=== PATIENT | male | born 1945 | race Caucasian/White ===

== ENCOUNTER 2021-04-07 15:08 | Inpatient (IN) | payer MEDICARE, OTHER ==
[~2021-04-07] VITALS: Ht 167.6 cm; Wt 78.7 kg
--- NOTE | 2021-04-07 15:30 | NUR ---
Patient came in to the er c/o abd pain and nausea after eating. On room air, breathing evenly and unlabored. Connected to the monitor and pulse ox. Kept comfortable, will continue to monitor accordingly.
--- NOTE | 2021-04-07 16:05 | NUR ---
IV started on the LAC G18.
[2021-04-07 16:16] LABS: BASOPHILS % (AUTO) 1.1 % (0.0-2.0); EOSINOPHILS % (AUTO) 6.4 % (0.0-6.0); HEMATOCRIT 31 % (39-51); HEMOGLOBIN 10.3 g/dL (13.5-17.5); LYMPHOCYTES # (AUTO) 0.6 K/uL (0.8-4.8); LYMPHOCYTES % (AUTO) 20.7 % (20.0-44.0); MEAN CORPUSCULAR HGB CONC 33 g/dl (31.0-36.0); MEAN CORPUSCULAR VOLUME 92 fL (80-96); MONOCYTES # (AUTO) 0.4 K/uL (0.1-1.30); MONOCYTES % (AUTO) 14.4 % (2.0-12.0); NEUTROPHILS # (AUTO) 1.7 K/uL (1.8-8.9); NEUTROPHILS % (AUTO) 57.4 % (43.0-81.0); PLATELET COUNT (AUTO) 123 K/uL (150-450); RED BLOOD CELL COUNT(AUTO) 3.42 MIL/uL (4.5-6.0); WHITE BLOOD COUNT (AUTO) 2.9 K/uL (4.3-11.0)
[2021-04-07 17:08] LABS: BILIRUBIN,URINE MODERATE (NEGATIVE); COLOR,URINE DARK YELLOW (YELLOW); LEUKOCYTE ESTERASE ,URINE NEGATIVE (NEGATIVE); NITRITE, URINE NEGATIVE (NEGATIVE); PROTEIN,URINE TRACE mg/dl (NEGATIVE); UGLUCOSE 250 MG/DL mg/dL (NEGATIVE)
[2021-04-07 17:14] LABS: CALCIUM, SERUM 9.2 mg/dL (8.5-10.1); CARBON DIOXIDE 20 mmol/L (21-32); CHLORIDE 101 mmol/L (98-107); CREATININE 2.1 mg/dL (0.6-1.3); GLUCOSE 253 mg/dL (74-106); POTASSIUM 5.5 mmol/L (3.5-5.1); SODIUM SERUM 134 mmol/L (136-145); UREA NITROGEN, BLOOD 30 mg/dL (7-18)
[2021-04-07 17:23] LABS: ALANINE AMINOTRANSFERASE 93 U/L (12-78); ALBUMIN 2.8 g/dL (3.4-5.0); ALKALINE PHOSPHATASE 309 U/L (46-116); ASPARTATE AMINOTRANSFERASE 116 U/L (15-37); BILIRUBIN,DIRECT 4.6 mg/dL (0.0-0.2); BILIRUBIN,TOTAL 5.1 mg/dL (0.2-1.0)
[2021-04-07 17:29] LABS: BACTERIA,URINE Few /HPF (None Seen); SQUAMOUS EPITHELIAL CELL,UR Few /HPF (None Seen); URINE AMORPHOUS URATE Few /HPF (None Seen)
[2021-04-07 17:37] LABS: LIPASE 1837 U/L (73-393)
[2021-04-07] MEDS ORDERED: ONDANSETRON HCL/PF 4 MG/2 ML VIAL ONE (17:49)
--- NOTE | 2021-04-07 17:58 | NUR ---
PAGED [facility].
[2021-04-07] MEDS ORDERED: ONDANSETRON HCL/PF - ER 4 MG/2 ML VIAL IV ONE (18:00)
[2021-04-07] MEDS ORDERED: IV NS 0.9% 500 ML BAG IV ONE ×2 (18:00→18:30)
[2021-04-07] MEDS ORDERED: DEXTROSE 50%-WATER 50 ML DISP.SYRIN IV PRN (20:30)
[2021-04-07] MEDS ORDERED: Z GUARD REMEDY 2 OZ OINT TP PRN (20:30)
[2021-04-07] MEDS ORDERED: ONDANSETRON HCL/PF 4 MG/2 ML VIAL IVP PRN (20:30)
[2021-04-07] MEDS ORDERED: ACETAMINOPHEN 325 MG TABLET PO PRN (20:30)
--- NOTE | 2021-04-07 20:55 | NUR ---
REPORT GIVEN TO ROB SINGLETON FOR TANGELA
[2021-04-07 21:15] VITALS: BP 161/78
--- NOTE | 2021-04-07 21:18 | NUR ---
PT TRANSFERRED TO [facility] 306-2 VIA GURNEY IN STABLE CONDITION.
[2021-04-07] MEDS ORDERED: LOSA50TA39 PO (21:23)
[2021-04-07] MEDS ORDERED: GLIP10TA11 PO (21:23)
[2021-04-07] MEDS ORDERED: GABA-536 PO (21:23)
[2021-04-07] MEDS ORDERED: ATOR80TA PO (21:23)
[2021-04-07] MEDS ORDERED: ASPI-1420 PO (21:23)
[2021-04-07] MEDS ORDERED: EZET10TA16 PO (21:23)
[2021-04-07] MEDS ORDERED: METF-442 PO (21:23)
[2021-04-07] MEDS: IV LR 1000 ML 1,000 ML IV PRN (21:42)
[2021-04-07] MEDS: CHOLESTYRAMINE/ASPARTAME 4 G/PKT PACKET PO SCH (21:47)
[2021-04-07] MEDS: BLOOD SUGAR DIAGNOSTIC 1 EACH STRIP IN SCH (21:49)
--- NOTE | 2021-04-07 22:26 | NUR ---
MS/TELE/RN ADMITTED PATIENT FROM E.. ARRIVED TO THE FLOOR VIA GURNEY. PATIENT WAS AWAKE, ALERT, ORIENTED COMFORTABLE, AMBULATORY, NO C/O PAIN, NO DISTRESS NOTED. PATIENT SPEAKS POLISH ONLY WITH LIMITED KOREAN, HENCE I WAS UNABLE TO OBTAIN MUCH ADMISSION INFORMATIONS. MADE PATIENT COMFORTABLE IN BED, TAUGHT THE USE OF CALL LIGHT AND PLACED AT BEDSIDE WITHIN REACH, MD ORDERS CARRIED OUT. WILL MONITOR.
--- NOTE | 2021-04-08 02:09 | NUR ---
MS/TELE/RN PATIENT IS SLEEPING AT THIS TIME, APPEAR COMFORTABLE, NO SIGNS OF DISTRESS NOTED, CALL LIGHT IN REACH, WILL CONTINUE TO MONITOR.
--- NOTE | 2021-04-08 06:14 | NUR ---
MS/TELE/RN PATIENT IS AWAKE AT THIS TIME, COMFORTABLE, NO DISTRESS NOTED, ALL NEEDS ATTENDED AT THIS TIME, WILL CONTINUE TO MONITOR.
[2021-04-08 06:16] LABS: ALANINE AMINOTRANSFERASE 84 U/L (12-78); ALBUMIN 2.5 g/dL (3.4-5.0); ALKALINE PHOSPHATASE 287 U/L (46-116); ASPARTATE AMINOTRANSFERASE 101 U/L (15-37); BILIRUBIN,TOTAL 4.5 mg/dL (0.2-1.0); CALCIUM, SERUM 8.9 mg/dL (8.5-10.1); CARBON DIOXIDE 21 mmol/L (21-32); CHLORIDE 105 mmol/L (98-107); CREATININE 1.7 mg/dL (0.6-1.3); GLUCOSE 241 mg/dL (74-106); PHOSPHORUS 3.2 mg/dL (2.5-4.9); POTASSIUM 5.3 mmol/L (3.5-5.1); SODIUM SERUM 137 mmol/L (136-145); TOTAL PROTEIN, SERUM 7.4 g/dL (6.4-8.2); UREA NITROGEN, BLOOD 26 mg/dL (7-18)
[2021-04-08 06:18] LABS: IRON, SERUM 44 ug/dl (50-175); TOTAL IRON BINDING CAPACITY 325 ug/dl (250-450)
[2021-04-08 06:21] LABS: CHOLESTEROL 109 mg/dL (<200); HDL CHOLESTEROL 19 mg/dL (40-60); LDL 62 mg/dL (0-99); THYROID STIMULATING HORMONE 2.434 uIU/mL (0.358-3.74); TRIGLYCERIDES 150 mg/dL (30-150)
[2021-04-08 06:24] LABS: BASOPHILS % (AUTO) 1.1 % (0.0-2.0); EOSINOPHILS % (AUTO) 5.6 % (0.0-6.0); HEMATOCRIT 30 % (39-51); HEMOGLOBIN 9.9 g/dL (13.5-17.5); LYMPHOCYTES # (AUTO) 0.8 K/uL (0.8-4.8); LYMPHOCYTES % (AUTO) 23.3 % (20.0-44.0); MEAN CORPUSCULAR HGB CONC 33 g/dl (31.0-36.0); MEAN CORPUSCULAR VOLUME 91 fL (80-96); MONOCYTES # (AUTO) 0.4 K/uL (0.1-1.30); MONOCYTES % (AUTO) 13.3 % (2.0-12.0); NEUTROPHILS # (AUTO) 1.9 K/uL (1.8-8.9); NEUTROPHILS % (AUTO) 56.7 % (43.0-81.0); PLATELET COUNT (AUTO) 119 K/uL (150-450); RED BLOOD CELL COUNT(AUTO) 3.24 MIL/uL (4.5-6.0); WHITE BLOOD COUNT (AUTO) 3.4 K/uL (4.3-11.0)
[2021-04-08] MEDS: IV LR 1000 ML 1,000 ML IV PRN ×2 (06:30→20:32)
[2021-04-08] MEDS: BLOOD SUGAR DIAGNOSTIC 1 EACH STRIP IN SCH ×4 (06:58→21:35)
--- NOTE | 2021-04-08 06:59 | NUR ---
MS/TELE/RN ACCU CHECK BLOOD SUGAR 196, PATIENT REFUSED INSULIN.
[2021-04-08 08:00] VITALS: BP 147/72
[2021-04-08] MEDS ORDERED: CHOL100062 PO (08:16)
[2021-04-08] MEDS ORDERED: PANTOPRAZOLE 40 MG VIAL IV SCH (09:00)
[2021-04-08] MEDS: CHOLESTYRAMINE/ASPARTAME 4 G/PKT PACKET PO SCH ×2 (09:49→21:42)
[2021-04-08 16:00] VITALS: BP 162/77
[2021-04-08] MEDS: INSULIN REGULAR, HUMAN 100 UNIT/ML 3 ML VIAL SQ PRN ×2 (17:25→21:41)
--- NOTE | 2021-04-08 19:45 | NUR ---
MS MANI OPENING NOTES RECEIVED PT RESTING IN BED, WITH EYES OPEN. PT IS A0x4. SWEDISH SPEAKING. NO S/SX OF RESPIRATORY DISTRESS NOTED. PT IS ON RA AND TOLERATING WELL. NO SOB NOTED.IV ACCESS IN R AC IS RUNNING LR @100 ML/HR. SAFETY PRECAUTIONS IN PLACE: BED IN LOWEST, LOCKED POSITION, BRAKES ON, SIDE RAILS UPx2. CALL LIGHT AND TABLE WITHIN REACH. WILL CONTINUE TO MONITOR. Addendum: 04/08/21 at 2338 by SIVA EID RN IV ACCESS IN L AC IS RUNNING LR @100 ML/HR.
[2021-04-08 20:08] VITALS: BP 145/77
--- NOTE | 2021-04-08 21:35 | NUR ---
PATIENT'S BLOOD SUGAR IS 177 MG/DL. DID NOT ADMINISTER INSULIN BECAUSE PATIENT REFUSED TO EAT.
--- NOTE | 2021-04-08 22:50 | NUR ---
RN NOTES New IV line inserted on the left wrist gauge 20
[2021-04-09] MEDS: BLOOD SUGAR DIAGNOSTIC 1 EACH STRIP IN SCH ×4 (05:52→20:57)
--- NOTE | 2021-04-09 05:56 | NUR ---
MS RN CLOSING NOTES PT RESTING IN BED WITH EYES CLOSED, AWAKENS TO VERBAL STIMULI. PT IS A0x4. ROMANIAN SPEAKING. NO S/SX OF RESPIRATORY DISTRESS NOTED. PT IS ON RA AND TOLERATING WELL. NO SOB NOTED. IV ACCESS IN L WRIST IS RUNNING LR @100 ML/HR. ALL NEEDS MET. PT KEPT CLEAN AND DRY. SAFETY PRECAUTIONS IN PLACE: BED IN LOWEST, LOCKED POSITION, BRAKES ON, SIDE RAILS UPx2. CALL LIGHT AND TABLE WITHIN REACH. WILL ENDORSE TO ONCOMING SHIFT.
[2021-04-09] MEDS: IV LR 1000 ML 1,000 ML IV PRN (06:34)
[2021-04-09] MEDS: INSULIN REGULAR, HUMAN 100 UNIT/ML 3 ML VIAL SQ PRN ×3 (06:35→21:12)
--- NOTE | 2021-04-09 07:05 | NUR ---
MS ORDER FILLER NOTE PATIENT ON BED, AWAKE, ALERT, ORIENTED X 4. PATIENT IS AMBULATORY AND ABLE TO MAKE NEEDS KNOW, NO C/O PAIN, NO DISTRESS NOTED. PATIENT WITH IV ACCESS ON LEFT WRIST G20 WITH IVF LR RUNNING AT 100ML/HR. SAFETY MEASURES IN PLACE WITH BED LOCKED AND AT LOWEST POSITION. CALL LIGHT AND BEDSIDE TABLE WITHIN REACH AT ALL TIMES. WILL CONTINUE TO MONITOR PATIENT.
[2021-04-09 07:09] LABS: ALANINE AMINOTRANSFERASE 85 U/L (12-78); ALBUMIN 2.8 g/dL (3.4-5.0); ALKALINE PHOSPHATASE 284 U/L (46-116); ASPARTATE AMINOTRANSFERASE 96 U/L (15-37); BILIRUBIN,TOTAL 4.5 mg/dL (0.2-1.0); CALCIUM, SERUM 9.2 mg/dL (8.5-10.1); CARBON DIOXIDE 23 mmol/L (21-32); CHLORIDE 106 mmol/L (98-107); CREATININE 1.6 mg/dL (0.6-1.3); GLUCOSE 171 mg/dL (74-106); LIPASE 1271 U/L (73-393); PHOSPHORUS 3.4 mg/dL (2.5-4.9); POTASSIUM 5.2 mmol/L (3.5-5.1); SODIUM SERUM 141 mmol/L (136-145); UREA NITROGEN, BLOOD 20 mg/dL (7-18)
[2021-04-09 07:22] LABS: EOSINOPHILS % (AUTO) 5.4 % (0.0-6.0); HEMATOCRIT 32 % (39-51); HEMOGLOBIN 10.6 g/dL (13.5-17.5); LYMPHOCYTES # (AUTO) 1.2 K/uL (0.8-4.8); LYMPHOCYTES % (AUTO) 26.5 % (20.0-44.0); MEAN CORPUSCULAR HGB CONC 34 g/dl (31.0-36.0); MEAN CORPUSCULAR VOLUME 91 fL (80-96); MONOCYTES # (AUTO) 0.6 K/uL (0.1-1.30); NEUTROPHILS # (AUTO) 2.5 K/uL (1.8-8.9); NEUTROPHILS % (AUTO) 54.1 % (43.0-81.0); PLATELET COUNT (AUTO) 138 K/uL (150-450); RED BLOOD CELL COUNT(AUTO) 3.47 MIL/uL (4.5-6.0); WHITE BLOOD COUNT (AUTO) 4.6 K/uL (4.3-11.0)
[2021-04-09 08:00] VITALS: BP 144/91
[2021-04-09 08:06] LABS: AFP, TUMOR MARKER 2.7 ng/mL (0.0-8.3)
--- NOTE | 2021-04-09 08:58 | NUR ---
WOUND CARE CONSULT: RECEIVED CONSULT FOR RT ELBOW WOUND. NO ELBOW WOUNDS NOTED. CURRENT DEISY SCORE IS 21. WILL SEE PRN.
[2021-04-09] MEDS: CHOLESTYRAMINE/ASPARTAME 4 G/PKT PACKET PO SCH ×2 (09:49→20:55)
[2021-04-09 16:00] VITALS: BP 164/82
--- NOTE | 2021-04-09 19:00 | NUR ---
MS SUPERVISOR PASTE MIXING NOTE PATIENT ON BED, AWAKE, ALERT, ORIENTED X 4. PATIENT IS AMBULATORY AND ABLE TO MAKE NEEDS KNOW, NO C/O PAIN, NO DISTRESS NOTED. PATIENT WITH IV ACCESS ON LEFT WRIST G20 WITH IVF LR RUNNING AT 100ML/HR. SAFETY MEASURES IN PLACE WITH BED LOCKED AND AT LOWEST POSITION. CALL LIGHT AND BEDSIDE TABLE WITHIN REACH AT ALL TIMES. WILL ENDORSE TO NEXT SHIFT FOR CONTINUITY OF CARE.
--- NOTE | 2021-04-09 19:55 | NUR ---
MS RN OPENING NOTES PT RESTING IN BED WITH EYES OPEN. FAMILY AT BEDSIDE. PT IS AOx4. [place] SPEAKING. BREATHING IS EVEN AND UNLABORED. NO S/SX OF RESPIRATORY DISTRESS NOTED. PT IS ON RA AND TOLERATING WELL. NO SOB NOTED. IV ACCESS IN L WRIST #20G. IV IS PATENT AND INTACT,FLUSHING WELL, SALINE LOCKED. SAFETY PRECAUTIONS IN PLACE: BED IN LOWEST, LOCKED POSITION, BRAKES ON, SIDE RAILS UPx2. CALL LIGHT AND TABLE WITHIN REACH. WILL CONTINUE TO MONITOR.
[2021-04-09 20:00] VITALS: BP 138/76
--- NOTE | 2021-04-09 20:07 | NUR ---
RN NOTES patient complained of watery eyes and itchiness, spoke to Galen Snyder-RACHNA and got an order of artificial eyedrop PRN, order noted and carried out
[2021-04-09] MEDS: POLYVINYL ALCOHOL 15 ML BOTTLE EACHEYE PRN (21:02)
[2021-04-09 21:13] LABS: CREATININE, URINE 42.7 MG/DL (30.0-125.0)
[2021-04-10] MEDS: IV LR 1000 ML 1,000 ML IV PRN (03:20)
--- NOTE | 2021-04-10 05:57 | NUR ---
MS RN CLOSING NOTES PT RESTING IN BED WITH EYES CLOSED, AWAKENS TO VERBAL STIMULI. PT IS AOx4. DANISH SPEAKING. BREATHING IS EVEN AND UNLABORED. NO S/SX OF RESPIRATORY DISTRESS NOTED. PT IS ON RA AND TOLERATING WELL. NO SOB NOTED. IV ACCESS IN L WRIST #20G. IV IS PATENT AND INTACT,FLUSHING WELL, SALINE LOCKED. NO COMPLAINTS OF PAIN THROUGHOUT SHIFT. ALL NEEDS MET. PT KEPT CLEAN AND DRY. SAFETY PRECAUTIONS IN PLACE: BED IN LOWEST, LOCKED POSITION, BRAKES ON, SIDE RAILS UPx2. CALL LIGHT AND TABLE WITHIN REACH. WILL ENDORSE TO ONCOMING SHIFT.
[2021-04-10 06:01] LABS: BASOPHILS % (AUTO) 1.2 % (0.0-2.0); HEMATOCRIT 32 % (39-51); HEMOGLOBIN 10.4 g/dL (13.5-17.5); LYMPHOCYTES % (AUTO) 24.3 % (20.0-44.0); MEAN CORPUSCULAR HGB CONC 33 g/dl (31.0-36.0); MEAN CORPUSCULAR VOLUME 91 fL (80-96); MONOCYTES # (AUTO) 0.5 K/uL (0.1-1.30); MONOCYTES % (AUTO) 13.2 % (2.0-12.0); NEUTROPHILS # (AUTO) 2.1 K/uL (1.8-8.9); NEUTROPHILS % (AUTO) 54.3 % (43.0-81.0); PLATELET COUNT (AUTO) 133 K/uL (150-450); RED BLOOD CELL COUNT(AUTO) 3.46 MIL/uL (4.5-6.0)
[2021-04-10] MEDS: INSULIN REGULAR, HUMAN 100 UNIT/ML 3 ML VIAL SQ PRN ×2 (06:32→21:46)
[2021-04-10] MEDS: BLOOD SUGAR DIAGNOSTIC 1 EACH STRIP IN SCH ×4 (06:32→21:41)
[2021-04-10 06:42] LABS: URIC ACID 3.6 mg/dL (2.6-7.2)
[2021-04-10 06:46] LABS: ALANINE AMINOTRANSFERASE 69 U/L (12-78); ALBUMIN 2.7 g/dL (3.4-5.0); ALKALINE PHOSPHATASE 270 U/L (46-116); ASPARTATE AMINOTRANSFERASE 77 U/L (15-37); BILIRUBIN,TOTAL 4.5 mg/dL (0.2-1.0); CALCIUM, SERUM 9.2 mg/dL (8.5-10.1); CARBON DIOXIDE 21 mmol/L (21-32); CHLORIDE 105 mmol/L (98-107); CREATININE 1.4 mg/dL (0.6-1.3); GLUCOSE 254 mg/dL (74-106); LIPASE 1156 U/L (73-393); PHOSPHORUS 3.6 mg/dL (2.5-4.9); POTASSIUM 4.7 mmol/L (3.5-5.1); SODIUM SERUM 138 mmol/L (136-145); TOTAL PROTEIN, SERUM 7.8 g/dL (6.4-8.2); UREA NITROGEN, BLOOD 17 mg/dL (7-18)
--- NOTE | 2021-04-10 07:10 | NUR ---
MS RN OPENING NOTE RECEIVED PATIENT ON BED ASLEEP, BUT EASILY AROUSABLE. PATIENT IS ALERT AND ORIENTED X 4 AND ABLE TO MAKE NEEDS KNOWN. PATIENT IS ON ROOM AIR WITH NO SIGNS OF RESPIRATORY DISTRESS WITH EVEN AND UNLABORED BREATHING. PATIENT WITH IV ACCESS ON LEFT WRIST G20 WITH ONGOING IVF OF LR AT 100ML/HR, INFUSING WELL. SAFETY PRECAUTIONS IN PLACE WITH BED IN LOWEST, LOCKED POSITION, BRAKES ON, SIDE RAILS UPx2. CALL LIGHT AND TABLE WITHIN REACH AT ALL TIMES. WILL CONTINUE TO MONITOR PATIENT.
[2021-04-10 08:07] LABS: *SPE A/G RATIO 0.6 (0.7-1.7); *SPE ALPHA-1-GLOBULIN 0.4 g/dL (0.0-0.4); *SPE ALPHA-2-GLOBULIN 1.2 g/dL (0.4-1.0); *SPE BETA GLOBULIN 1.3 g/dL (0.7-1.3); *SPE M-SPIKE 0.4 g/dL (Not Observed)
[2021-04-10 08:09] VITALS: BP 152/88
--- NOTE | 2021-04-10 11:00 | NUR ---
MS RN NOTE PATIENT STILL ON NPO FOR PENDING PROCEDURE. PATIENT SEEN BY DR. SOARES WITH SON AT BEDSIDE. COMFORT MEASURES PROVIDED. WILL CONTINUE TO MONITOR PATIENT.
--- NOTE | 2021-04-10 13:15 | NUR ---
MS RN NOTE PATIENT RETURNED FROM BIOPSY DONE AT RADIOLOGY DEPARTMENT. IN STABLE CONDITION. RESUMED PREVIOUS DIET AND MEDICATIONS ORDERED. WILL CONTINUE TO MONITOR PATIENT.
--- NOTE | 2021-04-10 14:00 | NUR ---
MS RN NOTE PATIENT PICKED UP FOR BIOPSY ORDERED. IN STABLE CONDITION.
[2021-04-10 14:07] LABS: ANTI-MITOCHONDRIAL AB 26.9 Units (0.0-20.0)
--- NOTE | 2021-04-10 15:10 | NUR ---
MS RN NOTE PATIETN SEEN BY DR. HERNANDEZ.
[2021-04-10] MEDS: CHOLESTYRAMINE/ASPARTAME 4 G/PKT PACKET PO SCH ×2 (15:20→21:24)
[2021-04-10] MEDS: PANTOPRAZOLE 40 MG TABLET.DR PO SCH (15:20)
[2021-04-10 16:06] VITALS: BP 148/82
[2021-04-10] MEDS: POLYVINYL ALCOHOL 15 ML BOTTLE EACHEYE PRN (18:20)
--- NOTE | 2021-04-10 19:00 | NUR ---
MS RN CLOSING NOTE PATIENT ON BED ASLEEP, BUT EASILY AROUSABLE. PATIENT IS ALERT AND ORIENTED X 4 AND ABLE TO MAKE NEEDS KNOWN. PATIENT IS ON ROOM AIR WITH NO SIGNS OF RESPIRATORY DISTRESS WITH EVEN AND UNLABORED BREATHING. PATIENT WITH IV ACCESS ON LEFT WRIST G20 WITH ONGOING IVF OF LR AT 100ML/HR, INFUSING WELL. SAFETY PRECAUTIONS IN PLACE WITH BED IN LOWEST, LOCKED POSITION, BRAKES ON, SIDE RAILS UPx2. CALL LIGHT AND TABLE WITHIN REACH AT ALL TIMES. WILL ENDORSE TO NEXT SHIFT FOR CONTINUITY OF CARE.
[2021-04-10 20:00] VITALS: BP 143/74
[2021-04-11 06:15] LABS: BASOPHILS # (AUTO) 0.1 K/uL (0.0-0.2); BASOPHILS % (AUTO) 1.3 % (0.0-2.0); EOSINOPHILS % (AUTO) 8.8 % (0.0-6.0); HEMATOCRIT 31 % (39-51); HEMOGLOBIN 10.5 g/dL (13.5-17.5); LYMPHOCYTES # (AUTO) 1.2 K/uL (0.8-4.8); LYMPHOCYTES % (AUTO) 27.1 % (20.0-44.0); MEAN CORPUSCULAR HGB CONC 33 g/dl (31.0-36.0); MEAN CORPUSCULAR VOLUME 90 fL (80-96); MONOCYTES # (AUTO) 0.5 K/uL (0.1-1.30); MONOCYTES % (AUTO) 12.4 % (2.0-12.0); NEUTROPHILS # (AUTO) 2.2 K/uL (1.8-8.9); NEUTROPHILS % (AUTO) 50.4 % (43.0-81.0); PLATELET COUNT (AUTO) 144 K/uL (150-450); RED BLOOD CELL COUNT(AUTO) 3.47 MIL/uL (4.5-6.0); WHITE BLOOD COUNT (AUTO) 4.4 K/uL (4.3-11.0)
[2021-04-11 06:27] LABS: ALANINE AMINOTRANSFERASE 70 U/L (12-78); ALBUMIN 2.8 g/dL (3.4-5.0); ALKALINE PHOSPHATASE 267 U/L (46-116); ASPARTATE AMINOTRANSFERASE 80 U/L (15-37); BILIRUBIN,TOTAL 4.5 mg/dL (0.2-1.0); CALCIUM, SERUM 8.8 mg/dL (8.5-10.1); CARBON DIOXIDE 25 mmol/L (21-32); CHLORIDE 105 mmol/L (98-107); CREATININE 1.5 mg/dL (0.6-1.3); GLUCOSE 183 mg/dL (74-106); LIPASE 678 U/L (73-393); PHOSPHORUS 3.8 mg/dL (2.5-4.9); POTASSIUM 4.2 mmol/L (3.5-5.1); SODIUM SERUM 140 mmol/L (136-145); TOTAL PROTEIN, SERUM 7.9 g/dL (6.4-8.2); UREA NITROGEN, BLOOD 16 mg/dL (7-18)
[2021-04-11] MEDS: BLOOD SUGAR DIAGNOSTIC 1 EACH STRIP IN SCH (06:32)
[2021-04-11] MEDS: INSULIN REGULAR, HUMAN 100 UNIT/ML 3 ML VIAL SQ PRN (06:34)
--- NOTE | 2021-04-11 06:53 | NUR ---
ms rn closing notes Patient has been A&Ox4. cooperative. VSS. No overnight events. No hypo or hyperglycemic reactions. Patient has been able to make needs known.
--- NOTE | 2021-04-11 07:22 | NUR ---
MS RN OPENING NOTE RECEIVED PATIENT LYING IN BED, RESTING. EASY TO AROUSE. A/O X4. STABLE ON ROOM AIR - NO SOB NOTED. NO DISTRESS/DISCOMFORT NOTED. IV ACCESS TO LEFT WRIST #20 - SALINE LOCKED. PATIENT IS AMBULATORY. SAFETY MEASURES IN PLACE. CALL LIGHT WITHIN REACH. WILL CONTINUE TO MONITOR.
[2021-04-11 08:00] VITALS: BP 123/66
[2021-04-11] MEDS: CHOLESTYRAMINE/ASPARTAME 4 G/PKT PACKET PO SCH (09:40)
[2021-04-11] MEDS: PANTOPRAZOLE 40 MG TABLET.DR PO SCH (09:40)
[2021-04-11] MEDS ORDERED: ASPIRIN EC 81 MG TABLET.DR PO SCH (10:30)
--- NOTE | 2021-04-11 12:06 | NUR ---
MS FREELANCE DIRECTOR NOTE PATIENT DISCHARGED VIA PRIVATE CAR @ 1206. STABLE, A.O X4. AND SON AT BEDSIDE. STABLE ON ROOM AIR. NO SOB NOTED. NO DISTRESS/DISCOMFORT NOTED. NO PAIN AT THIS TIME. ALL PATIENT EDUCATION AND EXITCARE REVIEWED AND GIVEN TO PATIENT AND PATIENT'S FAMILY. DISCHARGE PHOTOS TAKEN. IV ACCESS REMOVED. WRISTBAND REMOVED. ALL SCHEDULED MEDICATIONS GIVEN. PATIENT ACCOMPANIED TO LOBBY BY TRAVIS PAUL VIA WHEELCHAIR.
[2021-04-11] MEDS ORDERED: GABAPENTIN 400 MG CAPSULE PO SCH (13:00)
[2021-04-11] MEDS ORDERED: METFORMIN 500 MG TABLET PO SCH (17:00)
[2021-04-11] MEDS ORDERED: glipiZIDE 10 MG TABLET PO SCH (17:00)
[2021-04-11] MEDS ORDERED: ATORVASTATIN 40 MG TABLET PO SCH (22:00)
[2021-04-12] MEDS ORDERED: CHOLECALCIFEROL 1,000 UNIT TABLET (VIT D3) PO SCH (09:00)
[2021-04-12] MEDS ORDERED: LOSARTAN POTASSIUM 50 MG TABLET PO SCH (09:00)
[2021-04-12] MEDS ORDERED: EZETIMIBE 10 MG TABLET PO SCH (09:00)
== END 2021-04-11 12:07 | disposition home or self-care (01) | DRG 438 ==
LOC: ER 15:19 → MED 20:05
PROVIDERS: ADMIT Emergency Medicine; ATTEND Nurse Practitioner Acute Care
PROC: 0FB13ZX Excision of Right Lobe Liver, Percutaneous Approach, Diagnostic (ICD-10-PCS; principal; 2021-04-10)
DX: K85.90 Acute pancreatitis without necrosis or infection, unspecified (principal); N17.0 Acute kidney failure with tubular necrosis; E87.1 Hypo-osmolality and hyponatremia; D61.818 Other pancytopenia; E44.1 Mild protein-calorie malnutrition; E87.2 Acidosis; D68.9 Coagulation defect, unspecified; K86.2 Cyst of pancreas; K74.69 Other cirrhosis of liver; Z20.822 Contact with and (suspected) exposure to COVID-19; E86.0 Dehydration; I87.2 Venous insufficiency (chronic) (peripheral); E11.40 Type 2 diabetes mellitus with diabetic neuropathy, unspecified; E11.65 Type 2 diabetes mellitus with hyperglycemia; Z98.890 Other specified postprocedural states; E80.6 Other disorders of bilirubin metabolism; D72.819 Decreased white blood cell count, unspecified; D63.8 Anemia in other chronic diseases classified elsewhere; Z68.28 Body mass index [BMI] 28.0-28.9, adult; E66.9 Obesity, unspecified; E11.22 Type 2 diabetes mellitus with diabetic chronic kidney disease; N18.9 Chronic kidney disease, unspecified; Z79.84 Long term (current) use of oral hypoglycemic drugs
CPT/HCPCS: 36415; 74181-TC; 76705-TC; 76942-TC; 80048-TC; 80053-TC; 80061-TC; 80074; 80076-TC; 81001; 82105; 82140-TC; 82378; 82570-TC; 82962-TC; 83516; 83540-TC; 83690-TC; 84100-TC; 84155; 84165; 84300-TC; 84443-TC; 84484-TC; 84550-TC; 85025-TC; 85730-TC; 87081-TC; 88307-TC; 88313-TC; 88333-TC; C9113; C9803; G0378; J1815; J2405; J7040; J7120